=== PATIENT | female | born 1955 | race African-American/Black ===

== ENCOUNTER 2019-05-31 18:09 | Emergency (ER) | payer OTHER ==
[~2019-05-31] VITALS: Ht 160 cm; Wt 58.1 kg
[~2019-05-31 18:09] MED LIST: CARVEDILOL12.5 MG PO; MAXZIDE-25 MG1 EACH PO; NAPROSYN500 MG PO; ROBAXIN 750 MG750 M1 PO
[2019-05-31] MEDS ORDERED: TORSEMIDE20 MG PO ×2 (18:30)
[2019-05-31] MEDS ORDERED: MINOXIDIL2.5 MG PO (18:30)
[2019-05-31] MEDS ORDERED: AVAPRO300 MG PO (18:31)
[2019-05-31] MEDS ORDERED: CALCITRIOL0.25 MCG PO (18:31)
[2019-05-31] MEDS ORDERED: SENNA-DOCUSATE1 EAC1 PO (19:48)
[2019-05-31] MEDS ORDERED: IBUPROFEN 600600 M1 PO (19:48)
[2019-05-31] MEDS ORDERED: NORCO 5-325 TA1 EAC1 PO (19:48)
[2019-05-31 20:10] VITALS: BP 160/97
== END 2019-05-31 20:10 | disposition home or self-care (01) ==
LOC: ER 18:09
DX: S42.354A Nondisplaced comminuted fracture of shaft of humerus, right arm, initial encounter for closed fracture (principal); W19.XXXA Unspecified fall, initial encounter; Y93.89 Activity, other specified; Y92.89 Other specified places as the place of occurrence of the external cause; Y99.8 Other external cause status; Z87.891 Personal history of nicotine dependence; F12.90 Cannabis use, unspecified, uncomplicated